=== PATIENT | female | born 1965 | race Caucasian/White ===

== ENCOUNTER 2020-07-22 08:17 | Outpatient (CLI) | payer OTHER, SELFPAY ==
--- NOTE | 2020-07-22 08:23 | MM_ITS ---
WS: [id number] BILATERAL DIGITAL SCREENING MAMMOGRAPHY WITH CAD CLINICAL INFORMATION: SCREENING HISTORY: Screening mammogram. No current complaints. History of bilateral breast reduction. COMPARISON: TECHNIQUE: Bilateral CC and MLO views. FINDINGS: Scattered fibroglandular densities bilaterally. No suspicious focal mass, asymmetry, calcifications, or architectural distortion. No evidence of malignancy. MM/[place] [id number] IMPRESSION: BI-RADS: 1-Negative FOLLOW UP: 1 Year Follow-up Recommend return to annual screening mammography.
== END 2020-07-22 08:18 | disposition home or self-care (01) ==
LOC: RADSHAW 08:20
PROVIDERS: Family Provider Family Medicine; PCP Family Medicine; Visit Provider Family Medicine
DX: Z12.31 Encounter for screening mammogram for malignant neoplasm of breast (principal)
CPT/HCPCS: 77067

== ENCOUNTER 2021-08-06 08:00 | Outpatient (CLI) | payer OTHER, SELFPAY ==
--- NOTE | 2021-08-06 08:05 | MM_ITS ---
WS: [id number] BILATERAL DIGITAL SCREENING MAMMOGRAPHY WITH CAD CLINICAL INFORMATION: SCREENING HISTORY: Screening mammogram. No current complaints. COMPARISON: July 22, 2020 TECHNIQUE: Bilateral CC and MLO views. FINDINGS: Scattered fibroglandular densities bilaterally. A few tiny incidental punctate calcifications. No tyshawn picious focal mass, asymmetry, calcifications, or architectural distortion. No evidence of malignancy . MM/[place] [id number] IMPRESSION: BI-RADS: 2-Benign FOLLOW UP: 1 Year Follow-up Recommend return to annual screening mammography.
== END 2021-08-06 08:01 | disposition home or self-care (01) ==
LOC: RADSHAW 08:05
PROVIDERS: PCP Family Medicine; Visit Provider Family Medicine
DX: Z12.31 Encounter for screening mammogram for malignant neoplasm of breast (principal)
CPT/HCPCS: 77067

== ENCOUNTER 2022-09-12 07:22 | Outpatient (CLI) | payer OTHER, SELFPAY ==
--- NOTE | 2022-09-12 07:35 | MM_ITS ---
WS: [id number] SCREENING DIGITAL BREAST TOMOSYNTHESIS MAMMOGRAM WITH CAD HISTORY: SCREENING COMPARISON: 08/06/2021, 07/22/2020 and 07/12/2019 Bilateral CC and MLO with tomosynthesis and synthetic mammography submitted. Computer aided detection analyzed. Breast composition: There are scattered areas of fibroglandular density. Focal asymmetry in the anter ior RIGHT breast at 12:00. New since the prior studies. There are additional benign calcifications in each breast. MM/[place] [id number] IMPRESSION: BI-RADS: 0-Incomplete: Need additional imaging evaluation FOLLOW UP: Need Additional Imaging RIGHT breast: Spot compression views (CC and MLO). True ML. Ultrasound to follo w if abnormality persists.
== END 2022-09-12 07:23 | disposition home or self-care (01) ==
PROVIDERS: PCP Family Medicine; Visit Provider Family Medicine
DX: Z12.31 Encounter for screening mammogram for malignant neoplasm of breast (principal)
CPT/HCPCS: 77063; 77067

== ENCOUNTER 2022-10-14 07:22 | Outpatient (CLI) | payer OTHER, SELFPAY ==
--- NOTE | 2022-10-14 07:38 | MM_ITS ---
WS: [id number] ADDITIONAL VIEWS RIGHT MAMMOGRAM WITH DIGITAL BREAST TOMOSYNTHESIS. RIGHT BREAST ULTRASOUND HISTORY: ABNORMAL MAMMO COMPARISON: 09/12/2022, 08/06/2021 RIGHT MAMMOGRAM: Spot compression views and true ML with digital breast tomosynthesis and SM. Vague slightly spiculated nodule anterior RIGHT breast persists on additional views measuring approxi mately 7 mm. This is only very slightly hyperdense as compared to the adjacent breast tissue. RIGHT BREAST ULTRASOUND 2-D and color Doppler imaging submitted. Spiculated, hypoechoic mass in the RIGHT breast at 12:00 just above the areolar. This mass correspond s in size and position to the mammographic abnormality. Mass measures 5 x 8 x 8 mm. MM/[place] [id number] IMPRESSION: BI-RADS: 4-Suspicious Finding-Biopsy Should Be Considered FOLLOW UP: Biopsy Recommended Ultrasound-guided biopsy recommended RIGHT breast mass at 12:00. Notified Helio Fan MD at 10/14/2022 8:26 AM.
== END 2022-10-14 07:23 | disposition home or self-care (01) ==
PROVIDERS: PCP Family Medicine; Visit Provider Family Medicine
DX: R92.8 Other abnormal and inconclusive findings on diagnostic imaging of breast (principal); N63.41 Unspecified lump in right breast, subareolar
CPT/HCPCS: 76642; 77061; G0279

== ENCOUNTER 2022-11-09 14:20 | Outpatient (CLI) | payer OTHER, SELFPAY ==
--- NOTE | 2022-11-09 14:30 | US_ITS ---
WS: [id number] ULTRASOUND-GUIDED RIGHT BREAST BIOPSY HISTORY: ABNORMAL MAMMOGRAM COMPARISON: 10/14/2022, 09/12/2022 Procedure, risks and complications are explained to the patient. Medications are reviewed. Consent is obtained. The mass in the RIGHT breast is localized with ultrasound. Mass localizes to 12:00. Skin is cleansed with ChloraPrep and anesthetized with 1% buffered lidocaine. Small dermatome is made. Under sterile c onditions mass is biopsied with a 14-gauge Achieve needle. Multiple core biopsies are performed. Mate rial placed in formalin and sent to pathology for review. No complications encountered. Breast tissue marker (Opentopic ultrasound enhanced ribbon): Single. Patient left the radiology suite with no complications. Patient is instructed to return to [facility] or [facility] with any concerns. US/[place] [id number] IMPRESSION: 1. Uncomplicated core needle biopsy RIGHT breast at 12:00. PATHOLOGY: Benign breast tissue with stromal sclerosis and focal fat necrosis. No malignancy or atypia. RECOMMENDATION: 6 month mammogram and ultrasound follow-up. The ultrasound, mammographic and pathology findings are concordant. There is sh adowing in the area of concern as noted on the prior ultrasound. There was no d iscrete mass identified. These findings are concordant with focal fat necrosis. At this time 6 month RIGHT breast follow-up is recommended by mammography and ultrasound.
== END 2022-11-09 14:21 | disposition home or self-care (01) ==
PROVIDERS: PCP Family Medicine; Visit Provider Family Medicine
DX: N64.1 Fat necrosis of breast (principal); R92.8 Other abnormal and inconclusive findings on diagnostic imaging of breast
CPT/HCPCS: 19083; 88305

== ENCOUNTER → 2023-04-25 09:12 | Outpatient (BNVA) | payer OTHER, SELFPAY | PROVIDERS: PCP Family Medicine; Visit Provider Nurse Practitioner Family | DX: R39.9 Unspecified symptoms and signs involving the genitourinary system (principal); N39.0 Urinary tract infection, site not specified | CPT/HCPCS: 81003 ==

== ENCOUNTER 2023-07-17 08:46 | Outpatient (CLI) | payer OTHER, SELFPAY ==
--- NOTE | 2023-07-17 09:18 | MM_ITS ---
WS: [id number] DIAGNOSTIC RIGHT DIGITAL TOMOSYNTHESIS MAMMOGRAPHY WITH CAD. HISTORY: 6-month follow-up benign biopsy. COMPARISON: 11/09/2022, 10/05/2010, 10/14/2022 and 09/12/2022 Technique: CC, MLO and ML views. Breast composition: There are scattered areas of fibroglandular density. Biopsy clip at the 12:00 axi s. No soft tissue mass. No suspicious calcifications. Normal postbiopsy findings. IMPRESSION: MM/[place] [id number] BI-RADS: 2-Benign FOLLOW UP: See Report Return to annual screening mammography.
== END 2023-07-17 08:47 | disposition home or self-care (01) ==
LOC: RAD 08:46
PROVIDERS: PCP Family Medicine; Visit Provider Family Medicine
DX: R92.8 Other abnormal and inconclusive findings on diagnostic imaging of breast (principal)
CPT/HCPCS: 77061; G0279

== ENCOUNTER → 2024-09-05 10:26 | Outpatient (BNVA) | payer OTHER, SELFPAY | PROVIDERS: PCP Family Medicine; Visit Provider Nurse Practitioner Family | DX: J11.1 Influenza due to unidentified influenza virus with other respiratory manifestations (principal) | CPT/HCPCS: 87804 ==

== ENCOUNTER 2024-11-19 08:17 | Outpatient (CLI) | payer OTHER, SELFPAY ==
--- NOTE | 2024-11-19 08:20 | MM_ITS ---
WS: [id number] BILATERAL 3D TOMOSYNTHESIS DIGITAL SCREENING MAMMOGRAPHY WITH CAD CLINICAL INFORMATION: SCREENING HISTORY: Screening mammogram. No current complaints. Breast reduction COMPARISON: 2022 TECHNIQUE: Bilateral CC and MLO views. FINDINGS: Scattered fibroglandular densities bilaterally. No suspicious focal mass, asymmetry, calcifications, or architectural distortion. No evidence of malignancy. Incidental punctate calcifications. Biopsy clip RIGHT breast. MM/MM scr BI tomosynthesis [id number] IMPRESSION: DENSITY: There are scattered areas of fibroglandular density. BI-RADS: 2 - Benign. FOLLOW UP: 1 Year Follow-up Recommend return to annual screening mammography.
== END 2024-11-19 08:18 | disposition home or self-care (01) ==
PROVIDERS: PCP Family Medicine; Visit Provider Family Medicine
DX: Z12.31 Encounter for screening mammogram for malignant neoplasm of breast (principal); R92.323 Mammographic fibroglandular density, bilateral breasts; R92.1 Mammographic calcification found on diagnostic imaging of breast
CPT/HCPCS: 77063; 77067